=== PATIENT | female | born 1950 | race Caucasian/White ===

== ENCOUNTER → 2017-10-06 | Outpatient (CLI) | payer MEDICARE, BC ==
[~2017-10-06] MED LIST: ARMTHY90PT PO; ASPI81TA94 PO; AZIT-17 PO; BIS10S PR; CA C1TAB6 PO; CARXR100 PO; CEPH500C24 PO; CHOL200074 PO; CHOL400T22 PO; CIP500 PO; CIPR-344 PO; CLI150 PO; CLON-303 *; DIA5 PO; EZE10 PO; FERR27TA3 PO; FLU IM; FLU45SYR17 IM; FLU45SYR25 IM ONLY; FLUO40CA67 PO; FLUT16SP20 NS; GLIM4TAB50 PO; IBU600 PO; LACT1CAP74 PO; LAMO150T36 PO; LEVA15HF IH; LEVO-3 PO; LEVO100T95 PO; LEVO125T77 PO; LEVO75TA73 PO; LISI-362 PO; LOR10 PO; LOR5 PO; LORA-629 PO; MELA1TAB9 PO; METF500T4 PO; METF750T25 PO; METXR500 PO; MOD100 PO; MODA100T5 PO; MODA200T6 PO; MOM PO; NAPR-1043 PO; NYST15CR32 TP; OXYC5TAB38 PO; OXYC5TAB65 PO; PER PO; PIR14R INH; PNEU0.5D3 IM; RIFA300C50 PO; RIV10 PO; ROPI2TAB28 PO; ROPI4TAB21 PO; ROSU20TA13 PO; ROSU20TA23 PO; SAXA5TAB4 PO; SITA100T PO; TRA50 PO; VEN75 PO; VEN75XR PO; VENL150C3 PO; VENL75CA4 PO; VENL75CA58 PO; VITAMIN D; XARELTO PO
== END ==
LOC: LAB 13:15
PROVIDERS: ATTEND Emergency Medicine
DX: E03.9 Hypothyroidism, unspecified (principal)
CPT/HCPCS: 36415; 84443

== ENCOUNTER → 2018-02-24 | Outpatient (CLI) | payer MEDICARE, BC ==
[2018-02-24 15:22] LABS: PLATELET COUNT, AUTOMATED 213 K/uL (150-450)
== END ==
LOC: LAB 15:05
PROVIDERS: ATTEND Emergency Medicine
DX: E78.5 Hyperlipidemia, unspecified (principal); E11.9 Type 2 diabetes mellitus without complications; E03.9 Hypothyroidism, unspecified
CPT/HCPCS: 36415; 82040; 82247; 82310; 82374; 82435; 82465; 82565; 82947; 83036; 83718; 84075; 84132; 84155; 84295; 84443; 84450; 84460; 84478; 84520; 85025

== ENCOUNTER 2018-04-06 02:34 | Outpatient (RCR) | payer MEDICARE, BC ==
[~2018-04-06 02:34] MED LIST changes: -ROSU20TA13 PO; +ROSU20TA5 PO
--- NOTE | 2018-04-06 16:54 | RADIOLOGY IMAGING REPORT ---
FACILITY: [facility] - [place], [place] PATIENT NAME: JOSH GALINDO : [id number] MR: [id number] V: [id number] EXAM DATE: [id number] ORDERING PHYSICIAN: DEE DEE LERNER TECHNOLOGIST: Maria Del Carmen Arcos PROCEDURE:BILATERAL DIGITAL SCREENING MAMMOGRAM WITH CAD ASSISTED INTERPRETATION & 3D TOMOSYNTHESIS COMPARISON:Prior mammograms 03/25/16, 09/22/13, 09/08/13. INDICATIONS:SCREENING FINDINGS: Small to moderate amount of fibroglandular tissue is seen throughout the breasts. Most of the parenchymal pattern has remained stable allowing for difference in mammographic technique & patient positioning. Just lateral to mid line in the middle 1/3 of the Left breast on the Left CC view there are several small focal calcifications not definitively seen on the prior study. Spot magnification view recommended for further evaluation. DIAGNOSTIC CATEGORY 0--INCOMPLETE: NEED ADDITIONAL IMAGING EVALUATION. RECOMMENDATIONS: ADDITIONAL MAMMOGRAPHIC VIEWS REQUIRED: LEFT BREAST. IMPRESSION: BIRADS 0: Incomplete. Additional views of Left breast recommended as described above. Dictated by: Radha Medrano M.D. on 04/06/2018 at 11:31 Transcribed by: CHARLIE on 04/06/2018 at 13:24 Approved by: Radha Medrano M.D. on 04/06/2018 at 16:52 [facility]
[2018-05-11] MEDS ORDERED: METXR500 PO (15:43)
== END 2018-05-11 ==
LOC: MAMO 02:34 → EDSTATUS 14:27
PROVIDERS: ATTEND Emergency Medicine
DX: R92.2 Inconclusive mammogram (principal); I35.0 Nonrheumatic aortic (valve) stenosis; I35.8 Other nonrheumatic aortic valve disorders
CPT/HCPCS: 77063; 77067; 93306

== ENCOUNTER → 2018-04-22 | Outpatient (CLI) | payer MEDICARE, BC ==
--- NOTE | 2018-04-22 14:19 | RADIOLOGY IMAGING REPORT ---
FACILITY: [facility] - [place] PATIENT NAME: JOSH GALINDO : [id number] MR: [id number] V: [id number] EXAM DATE: ORDERING PHYSICIAN: DEE DEE LERNER TECHNOLOGIST: Maria Del Carmen Arcos PROCEDURE:LEFT DIGITAL DIAGNOSTIC MAMMOGRAM WITH CAD ASSISTED INTERPRETATION & 3D TOMOSYNTHESIS COMPARISON:Prior mammograms 04/06/18, 03/25/16. INDICATIONS:abnormal mammogram FINDINGS: Left breast CC magnification view and a straight lateral view obtained of the area of interest. There is a cluster of linier and round microcalcifications in the Left breast at middle depth as described. These are favored to represent benign vascular calcifications which are better appreciated on the Tomographic images on the 04/06/18 comparison. These are not definitively visible on the lateral view. There is scattered fibroglandular tissue. No suspicious abnormality. DIAGNOSTIC CATEGORY 2--BENIGN FINDING. RECOMMENDATIONS: ROUTINE MAMMOGRAM AND CLINICAL EVALUATION. IMPRESSION: BIRADS 2: Benign finding. Dictated by: David Hopkins on 04/22/2018 at 11:43 Transcribed by: CHARLIE on 04/22/2018 at 13:47 Approved by: David Hopkins on 04/22/2018 at 14:19 [facility]
== END ==
LOC: MAMO 04:53
PROVIDERS: ATTEND Emergency Medicine
DX: R92.8 Other abnormal and inconclusive findings on diagnostic imaging of breast (principal)
CPT/HCPCS: 77061; 77065

== ENCOUNTER → 2018-06-02 | Outpatient (CLI) | payer MEDICARE, BC ==
[2018-06-02 09:58] LABS: PLATELET COUNT, AUTOMATED 231 K/uL (150-450)
[2018-06-02 10:39] LABS: LDL CHOLESTEROL 39 mg/dl
== END ==
LOC: LAB 09:42
PROVIDERS: ATTEND Emergency Medicine
DX: E03.9 Hypothyroidism, unspecified (principal); E11.9 Type 2 diabetes mellitus without complications; E78.5 Hyperlipidemia, unspecified
CPT/HCPCS: 36415; 82040; 82247; 82310; 82374; 82435; 82465; 82565; 82947; 83036; 83718; 84075; 84132; 84155; 84295; 84443; 84450; 84460; 84478; 84520; 85025

== ENCOUNTER → 2019-01-05 | Outpatient (CLI) | payer MEDICARE, BC ==
[~2019-01-05] MED LIST changes: +DIPH0.5S2 IM; +LOSA25TA57 PO; +PNEI IM; -ROSU20TA23 PO; +ROSU20TA24 PO
== END ==
LOC: LAB 10:39
PROVIDERS: ATTEND Emergency Medicine
DX: E11.9 Type 2 diabetes mellitus without complications (principal); E53.8 Deficiency of other specified B group vitamins
CPT/HCPCS: 36415; 82607; 83036